=== PATIENT | male | born 1965 | race African-American/Black ===

== ENCOUNTER 2019-04-02 01:25 | Inpatient (IN) ==
[2019-04-02] MEDS ORDERED: TORADOL IV ONE (01:36)
[2019-04-02 01:54] LABS: BASO# 0.02 X1000 (0.0-0.2); BASO% 0.3 % (0.0-0.8); EOS# 0.12 X1000 (0.0-0.7); EOS% 1.6 % (0.0-10.0); HEMATOCRIT 41.6 % (42.0-52.0); HEMOGLOBIN 12.5 g/dL (14.0-18.0); IMM GRAN# 0.02 X1000 (0.0-0.04); IMM GRAN% 0.3 % (0.0-0.5); LYMPH# 0.84 X1000 (1.2-3.4); LYMPH% 11.2 % (20.5-51.1); MCH 22.9 PG (27-31); MCV 76.3 FL (81-99); MONO# 0.74 X1000 (0.11-0.59); MONO% 9.9 % (1.7-9.3); MPV 10.2 FL (7.4-10.4); NEUT# 5.76 X1000 (1.4-6.5); NEUT% 76.7 % (42.2-75.2); PLT 320 X1000 (130-400); RBC 5.45 XMIL (4.7-6.1); RDW 13.8 % (11.5-14.5)
[2019-04-02 02:08] LABS: PROTIME 14.8 Seconds (11.0-16.0)
[2019-04-02 02:12] LABS: AGAP 12; ALBUMIN 4.1 g/dL (3.5-5.0); ALKALINE PHOSPHATASE 110 U/L (32-122); BUN 8 mg/dL (8-22); CALCIUM 8.7 mg/dL (8.8-10.2); CHLORIDE 101 mmol/L (98-107); COSMO 279; CREATININE 0.7 mg/dL (0.7-1.2); ESTIMATED GFR > 60; GLUCOSE 126 mg/dL (70-104); GOT 26 U/L (10-34); GPT 27 U/L (10-44); SODIUM 140 mmol/L (136-145); TCO2 27 mmol/L (25-35); TOTAL PROTEIN 7.2 g/dL (6.3-8.3)
[2019-04-02 02:23] LABS: PTT < 20.0 Seconds (22.3-41.8)
[2019-04-02] MEDS ORDERED: LEVAQUIN 500 MG/D5W 500 MG/100 ML IVPB IV ONE (03:26)
[2019-04-02] MEDS ORDERED: NS 1,000 ML IV ONE (03:26)
[2019-04-02] MEDS ORDERED: SOLU-MEDROL IV ONE (03:27)
[2019-04-02] MEDS ORDERED: TYLENOL PO ONE (04:02)
--- NOTE | 2019-04-02 04:56 | PROVIDER DOCUMENTATION ---
This chart was entered by Eun Sandy Scribe, acting as scribe for Dago Fitzgerald MD. HPI-Chest Pain - General Chief Complaint: Chest Pain Stated Complaint: CHEST PAIN Time Seen by Provider: 04/02/19 01:28 Source: patient Allergies/Adverse Reactions: Patient Allergies Allergy/AdvReac Type Severity Reaction Status Date / Time coconut AdvReac SWELLING Verified 04/02/19 01:37 Home Medications: Home Medication List Medication Instructions Recorded Confirmed Last Taken Type Amlodipine Besylate [Norvasc] 10 mg PO DAILY 12/03/16 04/02/19 10/06/17 07:00 History - History of Present Illness-CP Nature of Presenting Problem: Patient is a 53 y/o male presenting to the ED today c/o chest pain. Patient reports onset of symptoms approximately 1 hour prior to arrival when he was resting trying to fall asleep. Patient states he has had a cough for the last few days and that chest pain worsens with cough or deep breaths. Patient states pain is predominantly over right side of chest. Denies all other signs/symptoms. Location: reports: substernal Chest Pain Radiation: reports: no radiation Quality of Pain: reports: sharp Onset/Duration: 1 hour ago Timing: still present Modifying Factors: worse with: breathing, coughing Associated Symptoms: reports: denies symptoms Nitro Today/Relief: no nitro taken today Aspirin Treatment Today: no aspirin today Prior Chest Pain/Cardiac Workup: reports: no prior chest pain, no prior cardiac workup Similar Symptoms Previously?: No Recently Seen Here or By Another Healthcare Provider: No Review of Systems - Adult - REVIEW OF SYSTEMS - ADULT Constitutional: denies: chills, fever Eyes: reports: no symptoms reported Ears, Nose, Mouth & Throat: reports: no symptoms reported Cardiovascular: reports: chest pain Respiratory: reports: cough. denies: shortness of breath, wheezing Gastrointestinal: denies: abdominal pain, diarrhea, nausea, vomiting Genitourinary: reports: no symptoms reported Musculoskeletal: reports: no symptoms reported Integumentary: reports: no symptoms reported Neurological: reports: no symptoms reported Psychiatric: reports: no symptoms reported Endocrine: reports: no symptoms reported Hematologic/Lymphatic: reports: no symptoms reported Allergic/Immunologic: reports: no symptoms reported All Other Systems: Reviewed and Negative Past History - Adult - PAST MEDICAL HISTORY-ADULT Review of Records: reports: Old Records Reviewed, Nursing Assessment Review, Medications Reviewed, Social history reviewed & non-contributory. Major Childhood Illnesses: reports: denies history Cardiovascular: reports: HTN Respiratory: reports: denies history Gastrointestinal: reports: denies history Obstetrical/Gynecological: reports: denies history Genitourinary: reports: denies history Musculoskeletal: reports: denies history Neurological: reports: denies history Psychiatric: reports: denies history Endocrine/Immune: reports: denies history Other Conditions: reports: denies history - PRIOR SURGERIES/PROCEDURES Surgical/Procedure History: reports: reviewed, not pertinent - IMMUNIZATION STATUS Childhood Immunizations: See Nurse Assessment Flu Vaccine: See Nurse Assessment - FAMILY HISTORY Family History: reviewed, not pertinent Physical Exam-General - PHYSICAL EXAM-ADULT Initial Vital Signs Reviewed: Yes - CONSTITUTIONAL General Appearance: appears well, alert, no apparent distress - EYES Eyes: PERRL/EOMI, pink conjunctivae - HEAD, EARS, NOSE, MOUTH & THROAT HENMT: normocephalic/atraumatic, moist mucous membranes - NECK Neck: full range of motion, normal inspection - RESPIRATORY Respiratory: lungs clear, normal breath sounds, no respiratory distress, no accessory muscle use, other (right chest wall tenderness) - CARDIOVASCULAR Cardiovascular: regular rate, rhythm, no edema - GASTROINTESTINAL (ABDOMEN) Abdominal Exam: non tender, soft - LYMPHATIC Lymphatic: no adenopathy - MUSCULOSKELETAL Back Exam: normal inspection Extremity: normal range of motion, normal gait, normal inspection - SKIN Integumentary: normal color, normal turgor, warm/dry - NEUROLOGIC Neurologic: grossly normal, no motor/sensory deficits - PSYCHIATRIC Psych/Mental Status: normal mood/affect, normal thought content, normal thought process - HEART Score HEART Score: History: Slightly Suspicious HEART Score: ECG: Normal HEART Score: Age: 45-65 Years HEART Score: Risk Factors for Atherosclerotic Disease: 1 or 2 Risk Factors HEART Score: Troponin: < or = Normal Limit Total HEART Score:: 2 Progress - PLAN OF CARE/RESULTS Progress/Plan/Lab Results: Vital Signs - 8 hr 04/02/19 01:31 04/02/19 02:34 04/02/19 03:50 Temperature 99.2 F 102.2 F H Pulse Rate 96 H 90 104 H Respiratory Rate 17 20 Blood Pressure 180/103 161/94 O2 Sat by Pulse Oximetry 96 97 96 Laboratory Results - last 24 hr 04/02/19 04/02/19 04/02/19 01:40 01:40 01:40 WBC 7.50 RBC 5.45 Hgb 12.5 L Hct 41.6 L MCV 76.3 L MCH 22.9 L MCHC 30.0 L RDW Std Deviation 13.8 Plt Count 320 MPV 10.2 Immature Gran % (Auto) 0.3 Neut % (Auto) 76.7 H Lymph % (Auto) 11.2 L [place] % (Auto) 9.9 H Eos % (Auto) 1.6 Baso % (Auto) 0.3 Immature Gran # (Auto) 0.02 Neut # (Auto) 5.76 Lymph # (Auto) 0.84 L [place] # (Auto) 0.74 H Eos # (Auto) 0.12 Baso # (Auto) 0.02 PT INR PTT (Actin FS) Sodium 140 Potassium 4.0 Chloride 101 Carbon Dioxide 27 Anion Gap 12 BUN 8 Creatinine 0.7 Estimated GFR/1.73 m2 > 60 BUN/Creatinine Ratio 11 Glucose 126 H Calculated Osmolality 279 Calcium 8.7 L Total Bilirubin 0.50 AST 26 ALT 27 Alkaline Phosphatase 110 Troponin T High Sens Tki-S-Jhdcvseblmn Pept 50 Total Protein 7.2 Albumin 4.1 Globulin 3.0 Albumin/Globulin Ratio 1.0 Plasma Lactate 04/02/19 04/02/19 04/02/19 01:40 01:40 03:54 WBC RBC Hgb Hct MCV MCH MCHC RDW Std Deviation Plt Count MPV Immature Gran % (Auto) Neut % (Auto) Lymph % (Auto) [place] % (Auto) Eos % (Auto) Baso % (Auto) Immature Gran # (Auto) Neut # (Auto) Lymph # (Auto) [place] # (Auto) Eos # (Auto) Baso # (Auto) PT 14.8 INR 1.10 PTT (Actin FS) < 20.0 L Sodium Potassium Chloride Carbon Dioxide Anion Gap BUN Creatinine Estimated GFR/1.73 m2 BUN/Creatinine Ratio Glucose Calculated Osmolality Calcium Total Bilirubin AST ALT Alkaline Phosphatase Troponin T High Sens 7 Xlx-X-Lyjqkdfskzx Pept Total Protein Albumin Globulin Albumin/Globulin Ratio Plasma Lactate 3.3 H 04/02/19 03:54 WBC RBC Hgb Hct MCV MCH MCHC RDW Std Deviation Plt Count MPV Immature Gran % (Auto) Neut % (Auto) Lymph % (Auto) [place] % (Auto) Eos % (Auto) Baso % (Auto) Immature Gran # (Auto) Neut # (Auto) Lymph # (Auto) [place] # (Auto) Eos # (Auto) Baso # (Auto) PT INR PTT (Actin FS) Sodium Potassium Chloride Carbon Dioxide Anion Gap BUN Creatinine Estimated GFR/1.73 m2 BUN/Creatinine Ratio Glucose Calculated Osmolality Calcium Total Bilirubin AST ALT Alkaline Phosphatase Troponin T High Sens 8 Egh-G-Kmhpljaovzg Pept Total Protein Albumin Globulin Albumin/Globulin Ratio Plasma Lactate Orders Category Date Time Status Notify MD of + Sepsis Screen NOW Care 04/02/19 04:45 Active Notify Physician As Ordered Care 04/02/19 04:45 Active CHEST-1 VIEW [RAD] Stat Exams 04/02/19 01:[address] ANGIOGRM PULMONARY ARTERIES [CT] Stat Exams 04/02/19 02:06 Taken ABG [RESP] Routine Lab 04/02/19 04:47 Ordered BLOOD CULTURE [BLDCUL] Stat Lab 04/02/19 04:01 Ordered CBC WITH ELECTRONIC DIFF [HEME] Stat Lab 04/02/19 01:40 Completed CK PROFILE [SP CHEM] Stat Lab 04/02/19 04:48 Ordered COMPREHENSIVE METABOLIC PANEL [CHEM] Stat Lab 04/02/19 01:[address] Stat Lab 04/02/19 04:49 Ordered LACTATE, PLASMA [CHEM] Q3H Lab 04/02/19 06:54 Uncollected LACTATE, PLASMA [CHEM] Q3H Lab 04/02/19 09:54 Uncollected LACTATE, PLASMA [CHEM] Stat Lab 04/02/19 03:54 Completed MAGNESIUM [CHEM] Stat Lab 04/02/19 04:48 Ordered PRO B-NATRIURETIC PEPTIDE Stat Lab 04/02/19 01:40 Completed PROTIME WITH INR [COAG] Stat Lab 04/02/19 01:40 Completed PTT [COAG] Stat Lab 04/02/19 01:40 Completed TROPONIN T HIGH SENSITIVITY Stat Lab 04/02/19 01:40 Completed TROPONIN T HIGH SENSITIVITY Stat Lab 04/02/19 03:54 Completed URINALYSIS W/POSS RFLX CULT [URINALYSIS] Stat Lab 04/02/19 04:45 Uncollected 0.9% Sodium Chloride Inj [Ns] 1,000 ml Med 04/02/19 03:26 Discontinued IV 999 mls/hr Acetaminophen [Tylenol] Med 04/02/19 04:02 Discontinued 1,000 mg PO NOW ONE Ketorolac [Toradol] Med 04/02/19 01:36 Discontinued 15 mg IV NOW ONE Levofloxacin 500 mg/D5w [Levaquin 500 mg/D5w] Med 04/02/19 03:26 Discontinued 500 mg in 100 ml IV NOW Methylprednisolone Sod Succ [Solu-Medrol] Med 04/02/19 03:27 Discontinued 125 mg IV NOW ONE EKG [EKG] Stat Ther 04/02/19 01:36 Ordered Result Diagrams: 04/02/19 01:40 04/02/19 01:40 - EKG 1 Time of EKG reading by physician:: 01:29 EKG Read and Signed by:: Dago Fitzgerald EKG Interpretation (*Must complete 3 of following elements*): Abnormal Rate: 96 Rhythm: Normal sinus rhythm QRS: other (left anterior fascicular block) - CT/MRI 1 CT Study: Thorax Impression: Abnormal, See EMR Report (multifocal rt upper lobe consolidation with rt parapneumonia effusion) - CONSULTS/PCP/HOSPITALIST Notification #1 *Consult/PCP/Hospitalist*: Dr Lara Time Discussed: 04:56 Consult Disposition: Admit Departure - Departure Date of Disposition Decision: 04/02/19 Time of Disposition Decision: 04:54 DIAGNOSIS: Pneumonia, Fever Disposition: ADMITTED INPATIENT 09 Certified Medical Emergency: Emergent Condition: Fair Referrals and Follow-Ups: None,PCP [Primary Care Provider] - - Critical Care Note This patient required my direct & personal management of CC.: No Attestation - Physician/ QUIANA Attestation Patient care was provided by Advanced Practice Provider:: No The physician spent face to face time with patient:: Yes Advanced Practice Provider documentation review:: Supervising physician onsite and consulted in the evaluation and care of this patient. The physician did have a face to face encounter with the patient. This chart was documented by the indicated scribe, (Eun Sandy Scribe) and accurately reflects the services I performed and decisions made by me, Dago Fitzgerald MD, as attested by the provider's signature.
[2019-04-02 05:05] LABS: URINE SOURCE CLEAN CATCH
[2019-04-02 05:07] LABS: BILIRUBIN URINE NEGATIVE (NEGATIVE); BLOOD URINE NEGATIVE (NEGATIVE); COLOR YELLOW; GLUCOSE URINE NEGATIVE (NEGATIVE); KETONE URINE NEGATIVE (NEGATIVE); LEUKOCYTES URINE NEGATIVE (NEGATIVE); NITRITE URINE NEGATIVE (NEGATIVE); PH URINE 6.5; PROTEIN URINE NEGATIVE (NEGATIVE); SP GRAVITY URINE 1.049; TURBIDITY URINE CLEAR (CLEAR); UROBILINOGEN URINE 3 mg/dL (NORMAL)
[2019-04-02 05:09] LABS: UR EPITHELIAL CELLS <10 /HPF (<10); URINE BACTERIA NEGATIVE /HPF; URINE RBC <10 /HPF (<10); URINE WBC <10 /HPF (<10)
[2019-04-02 05:11] LABS: BLOOD TYPE ARTERIAL; O2(CT) 16.5 mL/dL (15.0-23.0); O2HB 94.7 % (95.0-99.0); PCO2(98.6) 37 mmHg (35-45); PO2(98.6) 96 mmHg (60-100); SAMPLE BLOOD; SAO2 94.7 % (95.0-100.0); THB 12.3 g/dL (11.5-17.4); pH(98.6) 7.48 (7.35-7.45)
[2019-04-02 05:13] LABS: ALLEN TEST YES; MODALITY CANNULA
--- NOTE | 2019-04-02 05:18 | EKG Report ---
Test Performed on : 04/02/2019 01:29:39 AM Test Reason : chest pain Blood Pressure : / mmHG Vent. Rate : 096 BPM Atrial Rate : 096 BPM P-R Int : 140 ms QRS Dur : 090 ms QT Int : 336 ms P-R-T Axes : 051 -65 024 degrees QTc Int : 424 ms Normal sinus rhythm. Possible Left atrial enlargement Left anterior fascicular block Abnormal ECG When compared with ECG of 25-NOV-2017 20:22, No significant change was found Unconfirmed Result
[2019-04-02 05:22] LABS: INFLUENZA A NEGATIVE (NEGATIVE); INFLUENZA B NEGATIVE (NEGATIVE)
[2019-04-02 05:23] LABS: MAGNESIUM 1.9 mg/dL (1.5-2.7)
[2019-04-02] MEDS ORDERED: ZOFRAN IV PRN (06:43)
[2019-04-02] MEDS ORDERED: TORADOL IV PRN (06:43)
--- NOTE | 2019-04-02 07:46 | Diag Imaging Result Doc PS360 ---
EXAM: CHEST-1 VIEW HISTORY: chest pain TECHNIQUE: Single view COMPARISON: 11/25/2017 FINDINGS: The lungs are well expanded. The heart is mildly enlarged. The vessels are not distended. There are right mid lung infiltrates. No effusion identified. IMPRESSION: Right-sided pneumonia Electronically signed by Bob Godfrey 04/02/2019 7:44 AM
[2019-04-02 07:54] LABS: BASO# 0.01 X1000 (0.0-0.2); BASO% 0.1 % (0.0-0.8); HEMATOCRIT 39.9 % (42.0-52.0); HEMOGLOBIN 12.3 g/dL (14.0-18.0); IMM GRAN# 0.04 X1000 (0.0-0.04); IMM GRAN% 0.3 % (0.0-0.5); LYMPH# 0.41 X1000 (1.2-3.4); LYMPH% 3.1 % (20.5-51.1); MCH 23.4 PG (27-31); MCHC 30.8 g/dL (33-37); MCV 75.9 FL (81-99); MONO# 0.27 X1000 (0.11-0.59); MONO% 2.1 % (1.7-9.3); MPV 9.9 FL (7.4-10.4); NEUT# 12.29 X1000 (1.4-6.5); NEUT% 94.4 % (42.2-75.2); PLT 324 X1000 (130-400); RBC 5.26 XMIL (4.7-6.1); RDW 13.5 % (11.5-14.5); WBC 13.02 X1000 (4.8-10.8)
--- NOTE | 2019-04-02 07:56 | Diag Imaging Result Doc PS360 ---
EXAM: CT ANGIOGRM PULMONARY ARTERIES HISTORY: difficulty breathing, left arm swollen TECHNIQUE: CT chest with intravenous contrast. Pulmonary arterial protocol with MIP images. COMPARISON: 10/06/2017 FINDINGS: Normal opacification of the pulmonary arteries and their major branches. The heart is mildly enlarged. Trace right pleural fluid. No aortic aneurysm or dissection. Multifocal dense infiltrates in the right upper lobe. No pneumothoraces. No enlarged lymph nodes. Ossified lymph node on the left. IMPRESSION: 1.No pulmonary emboli 2.Right upper lobe pneumonia 3.Mild cardiomegaly with trace right pleural fluid A preliminary report was given at 3:20 AM This exam was performed using automated exposure control, adjustment of mA or kV according to patient size, and/or use of iterative reconstruction technique. Electronically signed by Bob Godfrey 04/02/2019 7:54 AM
[2019-04-02 07:57] LABS: AGAP 12; ALKALINE PHOSPHATASE 106 U/L (32-122); BUN 7 mg/dL (8-22); CALCIUM 8.5 mg/dL (8.8-10.2); CHLORIDE 102 mmol/L (98-107); COSMO 276; CREATININE 0.6 mg/dL (0.7-1.2); ESTIMATED GFR > 60; GLUCOSE 149 mg/dL (70-104); GOT 26 U/L (10-34); GPT 29 U/L (10-44); POTASSIUM 3.9 mmol/L (3.5-5.1); SODIUM 138 mmol/L (136-145); TCO2 24 mmol/L (25-35)
[2019-04-02] MEDS: DUONEB (A & A) INH SCH ×5 (11:49→23:01)
--- NOTE | 2019-04-02 11:53 | HISTORY AND PHYSICAL ---
PRIMARY CARE PROVIDER: No one. CHIEF COMPLAINT: Shortness of breath and cough. Also right-sided chest pain complaint. HISTORY OF PRESENT ILLNESS: Mr. Cyndi Ward is a 53-year-old male with a medical history of hypertension. States that yesterday morning he was coming in from [place], had developed a cough that was nonproductive with some mild shortness of breath and fever. He just felt extremely run down, so he presented to [facility] ER. Imaging found that he is positive for a right upper lobe pneumonia. He has been initiated on antibiotic therapy. PAST MEDICAL HISTORY: Hypertension. PAST SURGICAL HISTORY: Testicular torsion repair. SOCIAL HISTORY: Quit smoking in 2007. He was a 1 pack per day smoker since the age of 16. He also quit alcohol and marijuana in 2007. He works at [employer]. He has kids. He is not . FAMILY HISTORY: Mother, no medical conditions. Father unknown. ALLERGIES: Coconut. HOME MEDICATIONS: Amlodipine 10 mg p.o. daily. REVIEW OF SYSTEMS: Fourteen point review of systems are complete and all are negative except for those mentioned in above HPI. PHYSICAL EXAMINATION: VITAL SIGNS: Temperature 97.8 degrees, heart rate 71, respiratory rate 20, blood pressure 133/64, O2 saturation 100% on room air. GENERAL: Mr. Cyndi Ward is a 53-year-old male. He is in no acute distress, is able answer questions appropriately. HEENT: Atraumatic, normocephalic. Pupils equal, round, reactive to light. Extraocular movements intact. Mucous membranes are moist. NECK: Trachea midline. CARDIOVASCULAR: S1, S2. Regular rate and rhythm. No rubs, gallops, murmurs. No lower extremity edema. +2 dorsalis and radial pulses. Negative JVD or carotid bruits. PULMONARY: Clear to auscultation. Bilateral breath sounds. No accessory muscle use or work of breathing noted. GASTROINTESTINAL: Soft, nontender, nondistended. Positive bowel sounds x4. EXTREMITIES: Moves all extremities equally. Full range of motion. NEUROLOGIC: Alert and oriented x3. Follows commands. Sensory is intact. SKIN: Warm, dry, intact. LABORATORY DATA: White blood cells 13,000, hemoglobin 12, hematocrit 39, platelet count 324,000. INR is 1.10, PTT less than 20. ABGs on 2 L nasal cannula, pH 7.48, pCO2 37, PO2 96, bicarb 28, base excess 4, saturation 95%, lactate 1. Sodium 138, potassium 3.9, BUN 7, creatinine 0.6, glucose 149, calcium 8.5. Magnesium 1.9. Bilirubin 0.80, AST 26, ALT 29. CK 120, troponins 8, proBNP 50. Albumin 4.0. Lactate 1.5, actually it initially was 3.3, then down to 0.8 and then 1.5. Urinalysis, 3 urobilinogen, otherwise negative. Flu negative. IMAGING: Pulmonary arteriogram, no pulmonary emboli, right upper lobe pneumonia, mild cardiomegaly with trace right pleural effusion. Chest x-ray, right-sided pneumonia. EKG, normal sinus rhythm, rate 96, QTc is 424. ASSESSMENT AND PLAN: 1. Sepsis secondary to pneumonia. He had elevated lactate, fever. He was given fluids and started on Levaquin. 2. Right upper lobe pneumonia. Continue on Levaquin. We will get a sputum culture if possible. 3. Hypertension. Continue Norvasc. 4. Deep venous thrombosis prophylaxis. Sequential compression devices. Dictated by MILIND Reed for Ghassan Orellana MD cc: MILIND Reed MD
[2019-04-02] MEDS: NORVASC PO SCH (13:38)
[2019-04-02] MEDS ORDERED: FLU VACCINE IM ONE (17:36)
--- NOTE | 2019-04-03 02:19 | HISTORY AND PHYSICAL ---
ADDENDUM: Patient seen and examined by myself. Full note dictated and discussed with nurse practitioner. Patient presented to the hospital with increased cough, congestion, chest pain, shortness of breath and fatigue. Was diagnosed with right upper lobe pneumonia. We are going to admit him to the hospital, place him on antibiotics, oxygen, breathing treatments as needed and we will follow. cc: Ghassan Orellana MD
[2019-04-03] MEDS: DUONEB (A & A) INH SCH ×6 (03:08→22:54)
[2019-04-03] MEDS: LEVAQUIN 500 MG/D5W 500 MG/100 ML IVPB IV SCH (03:41)
[2019-04-03 05:56] LABS: BASO# 0.01 X1000 (0.0-0.2); BASO% 0.1 % (0.0-0.8); EOS# 0.01 X1000 (0.0-0.7); EOS% 0.1 % (0.0-10.0); HEMATOCRIT 38.6 % (42.0-52.0); HEMOGLOBIN 11.3 g/dL (14.0-18.0); IMM GRAN# 0.03 X1000 (0.0-0.04); IMM GRAN% 0.2 % (0.0-0.5); LYMPH# 0.85 X1000 (1.2-3.4); LYMPH% 6.4 % (20.5-51.1); MCH 22.3 PG (27-31); MCHC 29.3 g/dL (33-37); MCV 76.1 FL (81-99); MONO# 0.93 X1000 (0.11-0.59); MPV 9.7 FL (7.4-10.4); NEUT# 11.52 X1000 (1.4-6.5); NEUT% 86.2 % (42.2-75.2); PLT 355 X1000 (130-400); RBC 5.07 XMIL (4.7-6.1); RDW 13.8 % (11.5-14.5); WBC 13.35 X1000 (4.8-10.8)
[2019-04-03 06:26] LABS: AGAP 12; ALBUMIN 3.6 g/dL (3.5-5.0); ALKALINE PHOSPHATASE 91 U/L (32-122); BUN 15 mg/dL (8-22); CALCIUM 8.9 mg/dL (8.8-10.2); CHLORIDE 103 mmol/L (98-107); COSMO 283; CREATININE 0.6 mg/dL (0.7-1.2); ESTIMATED GFR > 60; GLUCOSE 142 mg/dL (70-104); GOT 14 U/L (10-34); GPT 24 U/L (10-44); POTASSIUM 3.7 mmol/L (3.5-5.1); SODIUM 140 mmol/L (136-145); TCO2 25 mmol/L (25-35); TOTAL PROTEIN 6.6 g/dL (6.3-8.3)
[2019-04-03 06:37] LABS: LYMPHS 4 % (21-51); MONO 8 % (1-9); SEGS 88 % (42-75)
[2019-04-03 06:38] LABS: POIKILOCYTOSIS 1+
[2019-04-03 06:39] LABS: HYPOCHROM 1+; MICROCYTOSIS OCCASIONAL; TARGET CELLS OCCASIONAL
[2019-04-03 06:40] LABS: OVALOCYTES OCCASIONAL; STOMATOCYTES OCCASIONAL
--- NOTE | 2019-04-03 07:45 | Diag Imaging Result Doc PS360 ---
EXAM: CHEST-2 VIEWS 04/03/2019 HISTORY: Pneumonia TECHNIQUE: PA and lateral chest COMMENT: There is atelectasis in the right middle lobe. This was also present on 04/02/2019 but not on 11/25/2017. IMPRESSION: Atelectasis versus pneumonia right middle lobe. Advise follow-up until clear. Electronically signed by Darron Miller 04/03/2019 7:43 AM
[2019-04-03] MEDS: NORVASC PO SCH (09:38)
[2019-04-03] MEDS: DOXYCYCLINE PO SCH ×2 (09:38→22:11)
[2019-04-03] MEDS: TYLENOL PO PRN ×2 (10:17→17:13)
--- NOTE | 2019-04-03 21:51 | PROGRESS NOTE ---
DATE: 04/03/2019 SUBJECTIVE: Patient notes cough, congestion, shortness of breath is improving. Denies any current fevers. PHYSICAL EXAM: Temperature 98, pulse 74, respiratory rate 20, BP 144/86.General: Patient is pleasant, currently in no distress. HEENT: Normocephalic. Neck: Supple. Cardiovascular: Regular rate. Chest: Clear. Abdomen: Soft. Extremities: Moves all extremities. ASSESSMENT: 1. Sepsis, appears resolved. 2. Pneumonia, improved 3. Hypertension. PLAN: We will continue antibiotics today. Hopefully, if symptoms continue to improve, he can be discharged home tomorrow. cc: Ghassan Orellana MD
[2019-04-04] MEDS: LEVAQUIN 500 MG/D5W 500 MG/100 ML IVPB IV SCH (03:16)
[2019-04-04] MEDS: DUONEB (A & A) INH SCH ×6 (03:18→23:09)
[2019-04-04 06:37] LABS: AGAP 10; ALBUMIN 3.6 g/dL (3.5-5.0); ALKALINE PHOSPHATASE 87 U/L (32-122); BUN 13 mg/dL (8-22); CALCIUM 8.5 mg/dL (8.8-10.2); CHLORIDE 103 mmol/L (98-107); COSMO 281; CREATININE 0.6 mg/dL (0.7-1.2); ESTIMATED GFR > 60; GLUCOSE 120 mg/dL (70-104); GOT 14 U/L (10-34); GPT 19 U/L (10-44); SODIUM 140 mmol/L (136-145); TCO2 27 mmol/L (25-35); TOTAL PROTEIN 6.5 g/dL (6.3-8.3)
[2019-04-04 06:38] LABS: BASO# 0.02 X1000 (0.0-0.2); BASO% 0.4 % (0.0-0.8); EOS# 0.06 X1000 (0.0-0.7); EOS% 1.2 % (0.0-10.0); HEMATOCRIT 37.7 % (42.0-52.0); HEMOGLOBIN 11.4 g/dL (14.0-18.0); IMM GRAN# 0.02 X1000 (0.0-0.04); IMM GRAN% 0.4 % (0.0-0.5); LYMPH# 1.04 X1000 (1.2-3.4); LYMPH% 21.5 % (20.5-51.1); MCH 22.9 PG (27-31); MCHC 30.2 g/dL (33-37); MCV 75.9 FL (81-99); MONO# 0.52 X1000 (0.11-0.59); MONO% 10.8 % (1.7-9.3); MPV 9.9 FL (7.4-10.4); NEUT# 3.17 X1000 (1.4-6.5); NEUT% 65.7 % (42.2-75.2); PLT 318 X1000 (130-400); RBC 4.97 XMIL (4.7-6.1); RDW 13.6 % (11.5-14.5); WBC 4.83 X1000 (4.8-10.8)
[2019-04-04] MEDS: NORVASC PO SCH (08:52)
[2019-04-04] MEDS: DOXYCYCLINE PO SCH ×2 (08:52→21:00)
[2019-04-04] MEDS: TYLENOL PO PRN (16:49)
[2019-04-04] MEDS ORDERED: LEVAQUIN PO SCH (21:00)
[2019-04-05] MEDS: DUONEB (A & A) INH SCH ×2 (03:25→07:25)
[2019-04-05 05:52] VITALS: BP 150/86
--- NOTE | 2019-04-05 06:46 | PROGRESS NOTE ---
DATE: 04/04/2019 SUBJECTIVE: The patient notes he is feeling better although not quite back to his baseline. Still having some cough and shortness of breath. OBJECTIVE: Vitals: Temperature 98, pulse 71, respiratory rate 18, BP 156/80. General: The patient is awake, pleasant, in mild distress. HEENT: Normocephalic. Neck: Supple. Cardiovascular: Regular rate. Chest: Decreased. Positive rhonchi throughout. No crackles. No wheezing. Abdomen: Soft. Extremities: Moves all extremities. Neurologic: No changes. ASSESSMENT: 1. Sepsis, resolved. 2. Pneumonia, right upper lobe, continues to improve. 3. Hypertension. 4. Leukocytosis, resolved. PLAN: Continue Levaquin and doxycycline. Continue breathing treatments, and will follow. Hopefully he will improve and can discharged home over the next 1 or 2 days. cc: Ghassan Orellana MD
[2019-04-05 07:16] LABS: BASO# 0.01 X1000 (0.0-0.2); BASO% 0.3 % (0.0-0.8); EOS# 0.06 X1000 (0.0-0.7); EOS% 1.5 % (0.0-10.0); HEMATOCRIT 37.8 % (42.0-52.0); HEMOGLOBIN 11.4 g/dL (14.0-18.0); IMM GRAN# 0.01 X1000 (0.0-0.04); IMM GRAN% 0.3 % (0.0-0.5); LYMPH# 0.95 X1000 (1.2-3.4); LYMPH% 24.4 % (20.5-51.1); MCH 22.4 PG (27-31); MCHC 30.2 g/dL (33-37); MCV 74.4 FL (81-99); MONO# 0.45 X1000 (0.11-0.59); MONO% 11.6 % (1.7-9.3); MPV 9.6 FL (7.4-10.4); NEUT# 2.41 X1000 (1.4-6.5); NEUT% 61.9 % (42.2-75.2); PLT 395 X1000 (130-400); RBC 5.08 XMIL (4.7-6.1); RDW 13.5 % (11.5-14.5); WBC 3.89 X1000 (4.8-10.8)
[2019-04-05 07:44] LABS: AGAP 12; ALBUMIN 3.6 g/dL (3.5-5.0); ALKALINE PHOSPHATASE 87 U/L (32-122); BUN 14 mg/dL (8-22); CALCIUM 8.8 mg/dL (8.8-10.2); CHLORIDE 101 mmol/L (98-107); COSMO 277; CREATININE 0.7 mg/dL (0.7-1.2); ESTIMATED GFR > 60; GLUCOSE 108 mg/dL (70-104); GOT 12 U/L (10-34); GPT 17 U/L (10-44); SODIUM 138 mmol/L (136-145); TCO2 25 mmol/L (25-35); TOTAL PROTEIN 6.6 g/dL (6.3-8.3)
[2019-04-05 09:13] LABS: EOS 2 % (1-10); LYMPHS 24 % (21-51); MONO 10 % (1-9); SEGS 64 % (42-75)
[2019-04-05] MEDS: DOXYCYCLINE PO SCH (09:22)
[2019-04-05] MEDS: NORVASC PO SCH (09:22)
--- NOTE | 2019-04-06 12:48 | DISCHARGE SUMMARY ---
ADMISSION DATE: 04/02/2019 DISCHARGE DATE: 04/05/2019 DISCHARGE DIAGNOSES: 1. Right upper lobe pneumonia, improved. 2. Sepsis, resolved. 3. Hypertension. 4. Leukocytosis. 5. Anemia of chronic disease. CONSULTATIONS: None. PROCEDURES: None. BRIEF HOSPITAL COURSE: The patient is a very pleasant 53-year-old male who presented to the hospital with increased cough, congestion, shortness of breath, diagnosed with pneumonia. He does have a longstanding history of smoking, stopped in 2007. He was placed on antibiotics, Levaquin doxycycline, both of which was started in his IV and then we transitioned to oral. On discharge he is awake and alert. He is in no distress. He is feeling better. He is able to ambulate with no real shortness of breath, therefore, we will discharge him home. DISPOSITION: The patient is instructed to continue antibiotics for a total 7 days. He will follow up outpatient with treatment facility of choice. TIME SPENT: Greater than 30 minutes was spent in total care. No changes made on his chronic home medications diet or activity. cc: Ghassan Orellana MD
== END 2019-04-05 10:57 | disposition home or self-care (01) | DRG 871 ==
LOC: P.ED 01:25 → P.MEDSURG 01:26 → SUATTDRO 01:26
PROVIDERS: ATTEND Family Medicine